=== PATIENT | male | born 1990 | race Caucasian/White ===

== ENCOUNTER 2017-06-07 12:40 | Emergency (ER) | payer MEDICAID | END 2017-06-07 15:48 | disposition home or self-care (01) | LOC: E/R 12:40 | DX: S92.424A Nondisplaced fracture of distal phalanx of right great toe, initial encounter for closed fracture (principal); F17.210 Nicotine dependence, cigarettes, uncomplicated; W21.09XA Struck by other hit or thrown ball, initial encounter; Y92.9 Unspecified place or not applicable | CPT/HCPCS: 73630; 99283-25 ==